=== PATIENT | female | born 2000 | race Two or more races ===

== ENCOUNTER 2025-08-12 21:06 | Emergency (ER) | payer MEDICAID, OTHER, SELFPAY ==
[2025-08-12 21:22] VITALS: BP 102/58; PULSE 97; RESP 18; TEMP 37; O2SAT 99; BMI 22.1
[2025-08-12 21:39] LABS: MANUAL DIFF FLAG NO
[2025-08-12 21:40] LABS: Hematocrit 35.9 % (37.0-47.0); Hemoglobin 12.2 g/dl (12.0-16.0); Imm Gran Abs Auto 0.05 X10*3/uL (0.00-0.03); Imm Gran Pct Auto 0.4 % (0.0-0.4); Lymphocytes Absolute Auto 1.4 X10*3/uL (1.2-4.9); Mean Corpuscular HGB Conc 34.0 g/dl (31.0-35.0); Mean Corpuscular Hemoglobin 29.3 pg (27.0-33.0); Mean Corpuscular Volume 86.3 fL (80.0-98.0); NRBC Abs Auto 0.000 X10*3/uL (0.0-0.012); NRBC Pct Auto 0.0 /100WBC (0.0-0.2); Platelet Count 318 X10*3/uL (160-400); Red Blood Count 4.16 X10*6/uL (4.20-5.50); White Blood Count 12.2 X10*3/uL (4.8-10.8)
[2025-08-12 21:54] LABS: Alanine Aminotransferase 20 U/L (0-31); Albumin Level 4.5 g/dL (3.5-5.0); Alkaline Phosphatase 82 U/L (39-117); Anion Gap 13 (12-20); Aspartate Amino Transferase 26 U/L (5-31); Blood Urea Nitrogen 8 mg/dL (9-16); Calcium 8.8 mg/dL (8.4-10.2); Carbon Dioxide 24 mmol/L (22-29); Chloride 107 mmol/L (96-108); Creatinine Clr Calc Pharmacy 109.9; Estimated Glomerular Filt Rate > 60; Potassium 3.5 mmol/L (3.3-5.1); Sodium 140 mmol/L (135-145); Total Protein 7.4 g/dL (6.5-8.0)
--- NOTE | 2025-08-13 00:33 | ED.ABDPAIN ---
HPI - Abdominal Pain General Chief Complaint: Abdominal Pain Stated Complaint: abd; lower back pain Time Seen by Provider: 08/13/25 00:32 Source: patient Mode of arrival: ambulatory Limitations: language barrier ([employer] Utilized) History of Present Illness ED Provider: Khurram SMALL HPI narrative: The patient is a 25-year-old female presenting to the ED for evaluation of suprapubic abdominal pain with 1 episode of vomiting tonight. The patient reports she ate the same meal as her family tonight, denies other family members with similar symptoms, denies any recent sick contacts or trauma. Patient reports for the past 1-2 weeks she has been experiencing intermittent vague pain in her bilateral low back without obvious cause. The patient reports tonight she was urinating in the bathroom when she developed pain in the suprapubic region with 1 episode of nonbloody vomiting. Patient denies associated dawit hematuria or dysuria. The patient denies associated fever/chills, chest pain, shortness of breath, cough, pleurisy, constipation, diarrhea, hematochezia, melena, vaginal discharge, or irregular vaginal bleeding. Patient reports last menstruation was approximately 1 month ago and she is expecting menses again this week. The patient reports she is not and has never been sexually active. The patient denies spinal or abdominal surgical history. Related Data Previous Rx's ?Medication ?Instructions ?Recorded cephalexin 500 mg capsule 500 mg PO BID #14 caps 08/13/25 phenazopyridine 100 mg tablet 100 mg PO TID 6 doses #6 tabs 08/13/25 (Pyridium) Allergies Allergy/AdvReac Type Severity Reaction Status Date / Time No Known Allergies Allergy Verified 08/12/25 21:25 Review of Systems Review of Systems Yes all other systems are reviewed and are negative PMFSH Social History Social History Advance Directives: No Advance Directives Information Provided: No Physical Exam ED Vital Signs: Vital Signs - 24 hr 08/12/25 21:22 Temperature 98.6 F Pulse Rate 97 Respiratory Rate 18 Blood Pressure 102/58 L Pulse Oximetry 99 Oxygen Delivery Method Room Air BMI result Body Mass Index 22.1 CONSTITUTIONAL: The patient appears non-toxic, well nourished and in no acute distress. Vital signs as documented. HEAD: Atraumatic, normocephalic. EYES: EOMs grossly intact, pupils equal, conjunctiva clear, no exudate. ENT: Nares patent, no discharge. Airway patent, no audible stridor, visible mucosa is pink and moist without noted lesions. NECK: Trachea is midline, no obvious masses or gross abnormalities. CHEST: Symmetric movement, normal appearance. LUNGS: LS present and CTAB, no w/r/r. Non-labored work of breathing. CARDIAC: Regular Rhythm, S1/S2 appreciated, no murmurs, rubs or gallops. ABDOMEN: Abdomen soft x4 quadrants, positive tenderness to palpation of the suprapubic region, negative rebound, no right lower quadrant tenderness, negative Rovsing's, no palpable masses or organomegaly. Negative CVAT bilaterally. : Deferred. EXTREMITIES: Normal tone, moves all extremities spontaneously without reported pain. No obvious acute injury or deformity noted. NEURO: Alert and oriented x3, CN II-XII appear grossly intact. Cerebellar Functioning grossly intact. No obvious sensory or motor deficits. Speech clear and appropriate. PSYCH: normal affect, appropriate eye contact, fluid speech, with appropriate response to questioning. No reported suicidality or homicidality. SKIN: Warm, dry, color appropriate, normal turgor. No rashes noted. Medical Decision Making Medical Decision Making MDM Narrative: 1:36 AM 08/13/2025 (John SMALL): The patient is a 25-year-old female presenting to the ED for evaluation of suprapubic abdominal pain with 1 episode of vomiting tonight. The patient reports she ate the same meal as her family tonight, denies other family members with similar symptoms, denies any recent sick contacts or trauma. Patient reports for the past 1-2 weeks she has been experiencing intermittent vague pain in her bilateral low back without obvious cause. The patient reports tonight she was urinating in the bathroom when she developed pain in the suprapubic region with 1 episode of nonbloody vomiting. Patient denies associated dawit hematuria or dysuria. The patient denies associated fever/chills, chest pain, shortness of breath, cough, pleurisy, constipation, diarrhea, hematochezia, melena, vaginal discharge, or irregular vaginal bleeding. Patient reports last menstruation was approximately 1 month ago and she is expecting menses again this week. The patient reports she is not and has never been sexually active. The patient denies spinal or abdominal surgical history. In the ED patient is well-appearing, in no acute distress, without hypotension, tachycardia, fever, or hypoxia. The patient's exam reveals tenderness over the suprapubic region, there is no right lower quadrant tenderness, no rebound or Rovsing's. There is no CVAT bilaterally. The patient's laboratory evaluation shows mild leukocytosis of 12.2 with neutrophilia, no significant anemia, electrolyte abnormality, or MARY GRACE. The patient's urinalysis shows large leukocyte esterase with 11-20 WBCs, minimal squamous epithelial cells, and 2+ bacteria. Given the patient's recent low back pain, suprapubic tenderness, and urinalysis findings, patient is likely suffering from UTI. Based on exam and workup there is no concern for pyelonephritis, renal stone, acute appendicitis, or ovarian torsion. The patient will be treated with cephalexin for 7 days and instructed to follow up with PCP. Lab Data 08/12/25 21:33 08/12/25 21:33 Labs: Lab Results 08/12/25 08/13/25 Range/Units 21:33 00:50 WBC 12.2 H (4.8-10.8) X10*3/uL RBC 4.16 L (4.20-5.50) X10*6/uL Hgb 12.2 (12.0-16.0) g/dl Hct 35.9 L (37.0-47.0) % MCV 86.3 (80.0-98.0) fL MCH 29.3 (27.0-33.0) pg MCHC 34.0 (31.0-35.0) g/dl RDW 12.3 (11.0-16.0) % Plt Count 318 (160-400) X10*3/uL MPV 9.4 (9.4-12.3) fL Immature Gran % (Auto) 0.4 (0.0-0.4) % Neut % (Auto) 82.3 H (45-73) % Lymph % (Auto) 11.8 L (20-40) % [place] % (Auto) 4.3 (2-11) % Eos % (Auto) 1.0 (0-4) % Baso % (Auto) 0.2 (0-2) % Lymph # (Auto) 1.4 (1.2-4.9) X10*3/uL [place] # (Auto) 0.5 (0.1-1.2) X10*3/uL Eos # (Auto) 0.1 (0.0-0.4) X10*3/uL Baso # (Auto) 0.0 (0.0-0.2) X10*3/uL Abs Immat Gran (auto) 0.05 H (0.00-0.03) X10*3/uL Absolute Neuts (auto) 10.1 H (2.0-8.3) x10*3/uL Absolute Nucleated RBC 0.000 (0.0-0.012) X10*3/uL Nucleated RBC % (auto) 0.0 (0.0-0.2) /100WBC Sodium 140 (135-145) mmol/L Potassium 3.5 (3.3-5.1) mmol/L Chloride 107 (96-108) mmol/L Carbon Dioxide 24 (22-29) mmol/L Anion Gap 13 (12-20) BUN 8 L (9-16) mg/dL Creatinine 0.71 (0.5-1.4) mg/dL Estim Creat Clear Calc 109.9 Estimated GFR > 60 Random Glucose 138 H (60-115) mg/dL Calcium 8.8 (8.4-10.2) mg/dL Total Bilirubin 0.3 (0.0-1.0) mg/dL AST 26 (5-31) U/L ALT 20 (0-31) U/L Alkaline Phosphatase 82 (39-117) U/L Total Protein 7.4 (6.5-8.0) g/dL Albumin 4.5 (3.5-5.0) g/dL Urine Color Yellow Urine Appearance Cloudy Urine pH 7.0 (5.0-9.0) Ur Specific [place] 1.015 (1.005-1.025) Urine Protein Trace (Neg-Trace) mg/dL Urine Glucose (UA) Negative (Negative) mg/dL Urine Ketones Negative (Negative) mg/dL Urine Blood Negative (Negative) Urine Nitrite Negative (Negative) Ur Leukocyte Esterase Large (3+) H (Negative) Urine RBC 0-2 (0-2) /HPF Urine WBC 11-20 (0-5) /HPF Ur Squamous Epith Cells 6-10 (0-2) /HPF Urine Bacteria 2+ (None Seen) Hyaline Casts 0-2 (0-2) /LPF Urine Test NEGATIVE (NEGATIVE) Discharge Plan Discharge Clinical Impression: Urinary tract infection Qualifiers: Urinary tract infection type: acute cystitis Hematuria presence: without hematuria Qualified Code(s): N30.00 - Acute cystitis without hematuria Patient Disposition: Home, Self-Care Instructions: Urinary Tract Infection in Women (ED) Additional Instructions: Thank you for choosing [facility] Emergency Department for your care today. At this time there is no indication for admission to the hospital or continued ED observation, and it is safe to discharge you home. Thankfully your vital signs, laboratory evaluation, and exam today are reassuring. Your presentation of symptoms, laboratory evaluation and urinalysis, are consistent with a urinary tract infection. Please take cephalexin as prescribed until finished. Please also take Pyridium for the next 2 days to reduce your pain. Please understand that Pyridium will turn your urine bright orange and we will have the potential to stain your underwear/clothes. You may take alternating (staggered) doses of ibuprofen 600mg and Tylenol 1000mg every 4 hours as needed for any additional pain. Please stay well hydrated and get plenty of rest. Please follow up with your primary care physician for re-evaluation, additional management of your symptoms, and continued preventative care. If you do not have a primary care physician, please call the [facility] at [phone] to establish a new primary care physician. While waiting to establish your new primary care physician, you can call our [facility] at [phone] for non-emergency needs. Please return to the emergency department if you develop a severe or sudden change in your symptoms, a fever over 100.4 that does not improve with Tylenol or Ibuprofen, recurrent vomiting, or any other new or worsening symptoms or concerns. Prescriptions: New phenazopyridine [Pyridium] 100 mg tablet 100 mg PO TID Qty: 6 0RF cephalexin 500 mg capsule 500 mg PO BID Qty: 14 0RF Print Language: [place]
[2025-08-13 00:58] LABS: Appearance Urine Cloudy; Glucose Urine UA Negative (Negative); PH 7.0 (5.0-9.0); Specific Gravity - Urine 1.015 (1.005-1.025); UMIC TRIGGER UACC YES; UPreg QC Valid YES
[2025-08-13 01:10] LABS: UACC Culture Trigger YES
[2025-08-13 02:25] VITALS: BP 104/67; PULSE 68; RESP 16; TEMP 36.6; O2SAT 98
== END 2025-08-13 02:26 | disposition home or self-care (01) ==
PROVIDERS: Emergency Provider Emergency Medicine
DX: N30.00 Acute cystitis without hematuria (principal); R10.9 Unspecified abdominal pain; R11.10 Vomiting, unspecified
CPT/HCPCS: 36415; 80053; 81001; 81025; 85025; 87086; 99283